=== PATIENT | male | born 1990 | race Caucasian/White ===

== ENCOUNTER → 2016-07-03 | Outpatient (REF) | payer OTHER ==
[2016-07-03 14:36] LABS: HIV SCRN NEGATIVE (NEGATIVE)
[2016-07-03 14:37] LABS: CONTROL LINE INT CTR LINE PRESENT; HIV SCRN1 NEGATIVE (NEGATIVE)
== END | disposition home or self-care (01) ==
LOC: M SFHCPLAZ 08:01
PROVIDERS: ATTEND Nurse Practitioner Family
DX: Z11.3 Encounter for screening for infections with a predominantly sexual mode of transmission (principal)

== ENCOUNTER → 2017-05-21 | Outpatient (REF) | payer OTHER ==
[2017-05-21 16:22] LABS: ALBUMIN 4.6 GM/DL (3.2-5.2); ALBUMIN/GLOBULIN RATIO 1.64 (1.00-1.93); ALKALINE PHOSPHATASE 123 U/L (45-117); ALT/SGPT 41 U/L (12-78); AMYLASE 62 U/L (25-115); ANION GAP 10 MEQ/L (8-16); AST/SGOT 22 U/L (7-37); BILIRUBIN,TOTAL 0.4 MG/DL (0.2-1.0); BLOOD UREA NITROGEN 13 MG/DL (7-18); CALCIUM LEVEL 9.2 MG/DL (8.5-10.1); CARBON DIOXIDE LEVEL 24 MEQ/L (21-32); CHLORIDE LEVEL 107 MEQ/L (98-107); CREATININE FOR GFR 0.81 MG/DL (0.70-1.30); GLOMERULAR FILTRATION RATE > 60.0 (>60); GLUCOSE, FASTING 77 MG/DL (70-105); IMMUNOGLOBULIN A 45.9 MG/DL (70-400); POTASSIUM SERUM 4.2 MEQ/L (3.5-5.1); SODIUM LEVEL 141 MEQ/L (136-145); TOTAL PROTEIN 7.4 GM/DL (6.4-8.2)
[2017-05-21 16:36] LABS: BASO # 0.1 10^3/uL (0.0-0.2); BASO % 0.7 % (0.0-1.0); EOS # 0.2 10^3/uL (0.0-0.50); EOS % 1.6 % (0.0-3.0); IMMATURE GRANULOCYTE % 0.4 % (0-0); LYMPH # 3.3 10^3/uL (1.5-6.5); LYMPH % 34.6 % (24.0-44.0); MEAN CORPUSCULAR HEMOGLOBIN 29.2 pg (27.0-33.0); MEAN CORPUSCULAR HGB CONC 32.7 g/dl (32.0-36.5); MEAN CORPUSCULAR VOLUME 89.2 fl (80.0-96.0); MONO # 0.6 10^3/uL (0.0-0.8); MONO % 6.4 % (0.0-5.0); NEUTROPHILS # 5.3 10^3/uL (1.8-7.7); NEUTROPHILS % 56.3 % (36.0-66.0); PLATELET COUNT, AUTOMATED 277 10^3/uL (150-450); RED CELL DISTRIBUTION WIDTH 13.3 % (11.5-14.5); WHITE BLOOD COUNT 9.5 10^3/uL (4.0-10.0)
== END ==
LOC: M SFHCPLAZ 12:08
PROVIDERS: ATTEND Nurse Practitioner Family
DX: Z11.3 Encounter for screening for infections with a predominantly sexual mode of transmission (principal); R10.11 Right upper quadrant pain; R19.7 Diarrhea, unspecified

== ENCOUNTER → 2017-07-10 | Outpatient (REF) | payer OTHER, MEDICAID | LOC: M SFHCPLAZ 12:48 | DX: R19.7 Diarrhea, unspecified (principal) ==

== ENCOUNTER → 2017-08-13 | Outpatient (CLI) | payer OTHER ==
[~2017-08-13] MED LIST: PROPOFOL 200 MG/20 ML VIAL As Ordered
== END ==
LOC: M RAD 08:00
DX: K58.2 Mixed irritable bowel syndrome (principal)

== ENCOUNTER 2017-08-17 07:51 | Day surgery (SDC) | payer OTHER ==
[2017-08-17] MEDS: NS 1,000 ML IV (08:00)
[2017-08-17] MEDS ORDERED: LIDOCAINE 2% INJ 100 MG/5 ML SDV (FOR ANES.) As Ordered (08:45)
[2017-08-17] MEDS ORDERED: PROPOFOL 200 MG/20 ML VIAL As Ordered ×3 (08:45→09:36)
[2017-08-17] MEDS ORDERED: fentaNYL 100 MCG/2 ML INJECTION (J3010) As Ordered (08:58)
== END 2017-08-17 10:39 | disposition home or self-care (01) ==
LOC: M OPP 07:51
DX: K58.2 Mixed irritable bowel syndrome (principal); R10.84 Generalized abdominal pain; R14.0 Abdominal distension (gaseous); R19.7 Diarrhea, unspecified; F41.9 Anxiety disorder, unspecified; F32.9 Major depressive disorder, single episode, unspecified; J45.909 Unspecified asthma, uncomplicated; G47.33 Obstructive sleep apnea (adult) (pediatric); F17.210 Nicotine dependence, cigarettes, uncomplicated
CPT/HCPCS: 45380

== ENCOUNTER → 2018-11-20 | Outpatient (REF) | payer OTHER ==
[~2018-11-20] MED LIST changes: +ASMA220A5 IN; -PROPOFOL 200 MG/20 ML VIAL As Ordered
[2018-11-20 12:28] LABS: HEMATOCRIT 45.2 % (42.0-52.0); HEMOGLOBIN 14.9 g/dl (13.5-17.5); MEAN CORPUSCULAR HEMOGLOBIN 29.4 pg (27.0-33.0); MEAN CORPUSCULAR VOLUME 89.2 fl (80.0-96.0); PLATELET COUNT, AUTOMATED 222 10^3/uL (150-450); RED BLOOD COUNT 5.07 10^6/uL (4.30-6.10); WHITE BLOOD COUNT 7.9 10^3/uL (4.0-10.0)
[2018-11-20 13:06] LABS: ALBUMIN 4.2 GM/DL (3.2-5.2); ALT/SGPT 40 U/L (12-78); BILIRUBIN,TOTAL 0.3 MG/DL (0.2-1.0); BLOOD UREA NITROGEN 12 MG/DL (7-18); CARBON DIOXIDE LEVEL 25 MEQ/L (21-32); CHLORIDE LEVEL 109 MEQ/L (98-107); CHOLESTEROL LEVEL 144 MG/DL (<200); CREATININE FOR GFR 0.86 MG/DL (0.70-1.30); GLOMERULAR FILTRATION RATE > 60.0 (>60); GLUCOSE, FASTING 90 MG/DL (70-100); HDL CHOLESTEROL 30 MG/DL (>40); LDL CHOLESTEROL 92 MG/DL (<100); NON-HDL-C 114 MG/DL; POTASSIUM SERUM 4.3 MEQ/L (3.5-5.1); SODIUM LEVEL 140 MEQ/L (136-145); THYROID STIMULATING HORMONE 0.516 uIU/ML (0.358-3.740); TRIGLYCERIDES LEVEL 109 MG/DL (<150)
[2018-11-20 13:18] LABS: HEPATITIS B SURFACE ANTIGEN NEGATIVE (NEGATIVE)
[2018-11-20 13:45] LABS: HEPATITIS C VIRUS ABY INDEX < 0.0 INDEX (<0.8)
[2018-11-20 13:46] LABS: HEPATITIS B CORE ANTIBODY IGM NEGATIVE (NEGATIVE); HIV 1&2 SCREEN CENTAUR NEGATIVE (NEGATIVE)
[2018-11-20 13:47] LABS: HEPATITIS A ANTIBODY IGM NEGATIVE (NEGATIVE)
[2018-11-20 13:48] LABS: CHLAMYDIA DNA AMPLIFICATION NEGATIVE (NEGATIVE); GC DNA AMPLIFICATION NEGATIVE (NEGATIVE)
== END ==
LOC: M SFHCPLAZ 09:53
PROVIDERS: ATTEND Nurse Practitioner Family
DX: Z00.00 Encounter for general adult medical examination without abnormal findings (principal); R53.83 Other fatigue; R63.5 Abnormal weight gain; Z13.220 Encounter for screening for lipoid disorders; Z11.3 Encounter for screening for infections with a predominantly sexual mode of transmission

== ENCOUNTER → 2019-06-27 | Outpatient (CLI) | payer OTHER ==
[2019-06-27 18:32] LABS: BASO # 0.1 10^3/uL (0.0-0.2); BASO % 0.4 % (0.0-1.0); EOS # 0.2 10^3/uL (0.0-0.5); EOS % 0.8 % (0.0-3.0); HEMATOCRIT 47.4 % (42.0-52.0); HEMOGLOBIN 15.1 g/dl (13.5-17.5); LYMPH # 2.3 10^3/uL (1.5-5.0); LYMPH % 11.2 % (24.0-44.0); MEAN CORPUSCULAR HGB CONC 31.9 g/dl (32.0-36.5); MONO # 1.1 10^3/uL (0.0-0.8); MONO % 5.4 % (0.0-5.0); NEUTROPHILS # 16.3 10^3/uL (1.5-8.5); NEUTROPHILS % 81.6 % (36.0-66.0); PLATELET COUNT, AUTOMATED 248 10^3/uL (150-450); RED BLOOD COUNT 5.21 10^6/uL (4.30-6.10)
[2019-06-27 18:53] LABS: MONO SCRN NEGATIVE (NEGATIVE)
[2019-06-27 19:17] LABS: ALBUMIN 4.7 GM/DL (3.2-5.2); ALT/SGPT 34 U/L (12-78); BILIRUBIN,TOTAL 0.2 MG/DL (0.2-1.0); BLOOD UREA NITROGEN 12 MG/DL (7-18); CALCIUM LEVEL 9.3 MG/DL (8.5-10.1); CARBON DIOXIDE LEVEL 23 MEQ/L (21-32); CHLORIDE LEVEL 106 MEQ/L (98-107); CREATININE FOR GFR 0.82 MG/DL (0.70-1.30); GLOMERULAR FILTRATION RATE > 60.0 (>60); GLUCOSE, FASTING 100 MG/DL (70-100); IRON (FE) 76 UG/DL (65-175); POTASSIUM SERUM 4.3 MEQ/L (3.5-5.1); SODIUM LEVEL 138 MEQ/L (136-145); THYROID STIMULATING HORMONE 0.626 uIU/ML (0.358-3.740); TOTAL 25(OH) VITAMIN D 22.8 NG/ML (30.0-100.0); TOTAL PROTEIN 7.5 GM/DL (6.4-8.2)
== END ==
LOC: M LAB 16:33
PROVIDERS: ATTEND Physician Assistant
DX: R53.83 Other fatigue (principal)

== ENCOUNTER 2020-10-23 09:51 | Emergency (ER) | payer BC, OTHER ==
[~2020-10-23] VITALS: Ht 177.8 cm; Wt 78.5 kg
[2020-10-23 09:52] VITALS: BP 123/90
[2020-10-23] MEDS ORDERED: VALI2TAB PO (10:01)
[2020-10-23] MEDS ORDERED: ADVA45AE (10:01)
--- NOTE | 2020-10-23 10:46 | REP ---
INDICATION: pain after running. COMPARISON: None. TECHNIQUE: Five views of the right knee are provided. FINDINGS: Five views of the right knee demonstrate normal bones, joints, and soft tissues. No fracture or subluxation is seen. No opaque foreign body noted. A normal fabella is present. IMPRESSION: Negative right knee series. <Electronically signed by Nakul Moncada > 10/23/20 1045
[2020-10-23] MEDS ORDERED: NAPR-837 PO (11:15)
== END 2020-10-23 11:24 | disposition home or self-care (01) ==
LOC: M ED 09:51
DX: M76.51 Patellar tendinitis, right knee (principal); M76.52 Patellar tendinitis, left knee; J45.909 Unspecified asthma, uncomplicated; F41.9 Anxiety disorder, unspecified; Z79.51 Long term (current) use of inhaled steroids

== ENCOUNTER → 2020-11-10 | Outpatient (CLI) | payer BC ==
[~2020-11-10] MED LIST changes: +ADVA45AE; +NAPR-837 PO; +VALI2TAB PO
[2020-11-11 08:38] LABS: MUMPS VIRUS IgG ANTIBODY <9.0 AU/mL (Immune >10.9); RUBEOLA IgG ANTIBODY <13.5 AU/mL (Immune >16.4)
== END ==
LOC: M WUC 08:52
PROVIDERS: ATTEND Physician Assistant
DX: Z02.1 Encounter for pre-employment examination (principal)

== ENCOUNTER 2022-06-06 13:48 | Emergency (ER) | payer BC, OTHER ==
[~2022-06-06] VITALS: Ht 177.8 cm; Wt 76.7 kg
[2022-06-06 13:49] VITALS: BP 134/91
[2022-06-06] MEDS ORDERED: QUET50TA4 (14:06)
[2022-06-06] MEDS ORDERED: ALBU8.5H (14:07)
[2022-06-06] MEDS ORDERED: SERO50TA PO (18:25)
[2022-06-06] MEDS ORDERED: VENTAER INH (18:25)
== END 2022-06-06 18:34 | disposition home or self-care (01) ==
LOC: M ED 13:48
DX: Z76.0 Encounter for issue of repeat prescription (principal); F41.9 Anxiety disorder, unspecified; F90.9 Attention-deficit hyperactivity disorder, unspecified type; F43.10 Post-traumatic stress disorder, unspecified; F31.9 Bipolar disorder, unspecified; J45.909 Unspecified asthma, uncomplicated; F17.290 Nicotine dependence, other tobacco product, uncomplicated

== ENCOUNTER 2023-05-16 19:49 | Emergency (ER) | payer BC, MEDICAID, OTHER ==
[~2023-05-16] VITALS: Ht 177.8 cm; Wt 62.0 kg
[~2023-05-16 19:49] MED LIST changes: +ALBU8.5H; +QUET50TA4; +SERO50TA PO; +VENTAER INH
[2023-05-16] MEDS ORDERED: DOXYCYCLINE HYCLATE 100MG TABLET PO ONE (21:00)
[2023-05-16] MEDS ORDERED: IBUP-1022 PO (21:59)
[2023-05-16] MEDS ORDERED: DOXY-443 PO (21:59)
[2023-05-16 22:10] VITALS: BP 111/68; TEMP 98.6; O2SAT 96
== END 2023-05-16 22:11 | disposition home or self-care (01) ==
LOC: M ED 19:49
DX: L02.01 Cutaneous abscess of face (principal); L02.31 Cutaneous abscess of buttock; L03.317 Cellulitis of buttock; F17.200 Nicotine dependence, unspecified, uncomplicated

== ENCOUNTER → 2023-06-21 | Outpatient (CLI) | payer OTHER ==
[~2023-06-21] MED LIST changes: +DOXY-443 PO; +IBUP-1022 PO
[2023-06-22 17:08] LABS: % CD4+ LYMPHS 25.3 % (30.8-58.5); ABSOLUTE CD4 HELPER 506 /uL (359-1519); BASOPHILS 2 % (Not Estab.); BASOPHILS ABSOLUTE 0.1 x10E3/uL (0.0-0.2); EOSINOPHILS 6 % (Not Estab.); EOSINOPHILS ABSOLUTE 0.3 x10E3/uL (0.0-0.4); HCT 44.2 % (37.5-51.0); HGB 14.9 g/dL (13.0-17.7); HIV-1 RNA PCR QUANT 1 LC162545 134000 copies/mL (.); HIV-1 RNA PCR QUANT 2 LC162545 5.127 (.); LYMPHOCYTES 33 % (Not Estab.); MCH 28.3 pg (26.6-33.0); MCHC 33.7 g/dL (31.5-35.7); MCV 84 fL (79-97); MONOCYTES 7 % (Not Estab.); MONOCYTES ABSOLUTE 0.4 x10E3/uL (0.1-0.9); NEUTROPHILS 52 % (Not Estab.); NEUTROPHILS ABSOLUTE 3.1 x10E3/uL (1.4-7.0); PLT 274 x10E3/uL (150-450); RBC 5.27 x10E6/uL (4.14-5.80); RDW 12.9 % (11.6-15.4)
== END ==
LOC: M LAB 06-16 12:01
PROVIDERS: ATTEND Physician Assistant Medical
DX: Z21 Asymptomatic human immunodeficiency virus [HIV] infection status (principal)

== ENCOUNTER → 2023-06-26 | Outpatient (REF) | payer OTHER | LOC: M SFHCPLAZ 13:23 | PROVIDERS: ATTEND Internal Medicine Infectious Disease | DX: Z11.3 Encounter for screening for infections with a predominantly sexual mode of transmission (principal) ==

== ENCOUNTER → 2023-09-03 | Outpatient (CLI) | payer OTHER ==
[2023-09-03 17:34] LABS: APPEARANCE, URINE HAZY (CLEAR); BACTERIA, URINE AUTO NEGATIVE (NEGATIVE); BILIRUBIN, URINE AUTO NEGATIVE (NEGATIVE); BLOOD, URINE BLOOD NEGATIVE (NEGATIVE); COLOR, URINE YELLOW (YELLOW); GLUCOSE, URINE (UA) AUTO NEGATIVE (NEGATIVE); KETONE, URINE AUTO NEGATIVE (NEGATIVE); LEUKOCYTE ESTERASE, URINE AUTO NEGATIVE (NEGATIVE); MUCUS, URINE SMALL (NEGATIVE); NITRITE, URINE AUTO NEGATIVE (NEGATIVE); PROTEIN, URINE AUTO NEGATIVE (NEGATIVE); RBC, URINE AUTO 0 /HPF (0-3); SPECIFIC GRAVITY URINE AUTO 1.016 (1.002-1.035); SQUAMOUS EPITHELIAL CELL UR AU 0 /HPF (0-6); UROBILINOGEN, URINE AUTO 0.2 mg/dL (0.0-2.0); WBC, URINE AUTO 0 /HPF (0-3)
[2023-09-03 17:44] LABS: ALBUMIN 4.4 G/DL (3.2-5.2); ALKALINE PHOSPHATASE 91 U/L (46-116); ALT/SGPT 21 U/L (7.0-40); AST/SGOT 10 U/L (<34); BILIRUBIN,TOTAL 0.4 MG/DL (0.3-1.2); BLOOD UREA NITROGEN 18 MG/DL (9-23); CALCIUM LEVEL 9.6 MG/DL (8.5-10.1); CARBON DIOXIDE LEVEL 26 MMOL/L (20-31); CHLORIDE LEVEL 106 MMOL/L (98-107); CREATININE FOR GFR 0.95 MG/DL (0.70-1.30); GLOMERULAR FILTRATION RATE > 60.0 (>60); GLUCOSE, FASTING 95 MG/DL (60-100); POTASSIUM SERUM 4.1 MMOL/L (3.5-5.1); SODIUM LEVEL 140 MMOL/L (136-145); TOTAL PROTEIN 6.8 G/DL (5.7-8.2)
[2023-09-03 17:46] LABS: HEPATITIS B SURFACE ANTIBODY POSITIVE (POSITIVE)
[2023-09-03 18:18] LABS: HEPATITIS C VIRUS ABY INDEX < 0.02 INDEX (<0.8)
[2023-09-03 19:42] LABS: GC DNA AMPLIFICATION NEGATIVE (NEGATIVE)
== END ==
LOC: M PLALAB 14:32
PROVIDERS: ATTEND Internal Medicine Infectious Disease
DX: B20 Human immunodeficiency virus [HIV] disease (principal)